=== PATIENT | male | born 1950 | race Caucasian/White ===

== ENCOUNTER 2021-09-13 11:21 | Day surgery (SDC) | payer MEDICARE ==
[~2021-09-13 11:21] MED LIST: ALBUTEROL NEB (CONC) 2.5 MG/0.5 ML INHALATION ONE; ATROPINE SULFATE 0.4 MG/ML 1 ML VIAL IM ONE; LACTATED RINGERS 1,000 ML IV SCH; LIDOCAINE 2% (PF) 20 MG/ML 5 ML VIAL INHALATION ONE; LIDOCAINE VISCOUS 300 MG/15 ML CUP MUCOUS MEM ONE
[2021-09-13 12:14] VITALS: BMI 27.8
[2021-09-13 12:20] VITALS: RESP 16; TEMP 97.2
[2021-09-13] MEDS ORDERED: LACTATED RINGERS 1,000 ML IV SCH (12:20)
[2021-09-13] MEDS ORDERED: LACTATED RINGERS 1,000 ML IV ONE (12:30)
[2021-09-13] MEDS ORDERED: MIDAZOLAM 2 MG/2 ML VIAL ONE (12:34)
[2021-09-13] MEDS ORDERED: PROPOFOL 10 MG/ML 20 ML VIAL IV ONE (12:34)
[2021-09-13] MEDS ORDERED: KETAMINE 10 MG/ML 20 ML VIAL ONE (12:34)
[2021-09-13] MEDS ORDERED: LIDOCAINE 2% INJ 20 MG/ML (2 ML VIAL) ONE (12:34)
[2021-09-13] MEDS ORDERED: LIDOCAINE 2% INJ 20 MG/ML INTRATRACH ONE (12:51)
[2021-09-13 13:24] VITALS: BP 109/74; PULSE 79
--- NOTE | 2021-09-13 20:52 | PCN ---
PROCEDURE NOTE PRE-PROCEDURE DIAGNOSIS: 1. Endobronchial obstruction. 2. Bronchus intermedius. POST PROCEDURE DIAGNOSIS: 1. Endobronchial obstruction. 2. Bronchus intermedius. PROCEDURE: Bronchoscopy, airway examination, therapeutic lavage, BAL, right middle lobe. OPERATORS: Dr. Teague and Dr. Phan. The patient's procedure took place in room #1. There was informed consent and universal timeout. ANESTHESIA PROVIDED: General anesthesia. PROCEDURE: After the patient was adequately sedated and being fully monitored, the bronchoscope was inserted through the right nostril. It passed through the right nasopharynx into the oropharynx. The hypopharynx was identified and topicalized. The hypopharyngeal structures including anterior commissure, true cords, false cords, arytenoids, piriform sinuses, right and left valleculae and epiglottis all appeared relatively normal. After topicalization, the bronchoscope was pushed through the glottic opening into the trachea. The trachea appeared normal. Tracheal ravindra was sharp. The right and left mainstem were topicalized. The right upper lobe and its 3 segments, right middle lobe and its 2 segments, right lower lobe and its 5 segments, the left upper lobe proper and its 2 segments, the lingula and its 2 segments, and the left lower lobe and its 4 segments all appear normal. We look closely at the bronchus intermedius. There was no obstruction or lesion. There were secretions noted throughout. They were somewhat purulent. There was no bleeding. The mucosa appeared relatively normal. Next, the bronchoscope was wedged into the right middle lobe. A formal BAL took place. 30 mL of fluid was recovered. The fluid will be sent for analysis including cytology and microbiology. There was no complication or problem. The bronchoscope was withdrawn and the patient will be recovered. MMODL / IJN: [id number] /
== END 2021-09-13 13:31 | disposition home or self-care (01) ==
LOC: ORWHC2ENDO 11:21
PROVIDERS: ATTEND Internal Medicine Critical Care Medicine
DX: J20.9 Acute bronchitis, unspecified (principal); I25.10 Atherosclerotic heart disease of native coronary artery without angina pectoris; I11.0 Hypertensive heart disease with heart failure; I50.9 Heart failure, unspecified; E78.5 Hyperlipidemia, unspecified; J44.9 Chronic obstructive pulmonary disease, unspecified; E03.9 Hypothyroidism, unspecified; F41.9 Anxiety disorder, unspecified; K21.9 Gastro-esophageal reflux disease without esophagitis; F25.9 Schizoaffective disorder, unspecified; Z79.82 Long term (current) use of aspirin; Z79.51 Long term (current) use of inhaled steroids; Z79.01 Long term (current) use of anticoagulants; Z79.899 Other long term (current) drug therapy; Z79.890 Hormone replacement therapy; Z28.311 Partially vaccinated for COVID-19; Z82.49 Family history of ischemic heart disease and other diseases of the circulatory system; Z82.3 Family history of stroke; F17.200 Nicotine dependence, unspecified, uncomplicated; Z87.01 Personal history of pneumonia (recurrent)
CPT/HCPCS: 88108; 88305; 87252; 87070; 87205; 87116; 87102; 87206; 31624; J2001 ×2; J2250; J0461; J2704; 87496; 87498; 87502; 87529; 87634; 87798; 89050

== ENCOUNTER → 2021-09-20 | Outpatient (CLI) | payer MEDICARE ==
--- NOTE | 2021-09-21 11:21 | PE ---
EXAMINATION TYPE: PET CT fusion skull to thigh DATE OF EXAM: 09/20/2021 CLINICAL INDICATION:Male, 70 years old with history of R91.8 Abnormal Lung rodríguez; TECHNIQUE: Following the intravenous administration of 12.56 mCi of F-18 FDG, whole body images are performed from the skull base to the midthigh. Images are reviewed on the computer in the coronal, axial, and sagittal planes. Reconstructed rotating images are created on independent workstation and reviewed on the computer. A non-contrast CT is performed in conjunction with the PET scan. Glucose level 101 mg/dL COMPARISON: CT None., PET/CT None., FINDINGS: Mediastinal SUV maximum is 2.1. Hepatic parenchyma SUV maximum is 3.2 . SKULL BASE AND NECK: No suspicious FDG activity. CHEST, MEDIASTINUM, AND HILAR REGION: No suspicious FDG activity. ABDOMEN AND PELVIS: No suspicious FDG activity. OSSEOUS STRUCTURES: No suspicious FDG activity. OTHER CT: Lenses are removed from the globes. Atherosclerosis at the carotid bifurcations. Coronary a rtery atherosclerosis with sternotomy wires. Moderate centrilobular emphysema changes with pulmonary fibrosis changes most pronounced in the lung bases. The heart is mildly enlarged for size. Infrarenal aortic aneurysm measuring up to 5.1 cm. 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 S pleen is enlarged size measuring up to 16.0 cm. IMPRESSION: 1. No suspicious FDG activity identified. No priors were available. If a prior is made available an addendum can be made to address providers area of concern. 2. 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 3. Moderate to severe COPD with superimposed pulmonary fibrotic changes.
== END | disposition home or self-care (01) ==
LOC: RADXRMAIN 13:54
PROVIDERS: ATTEND Internal Medicine Critical Care Medicine
DX: I71.9 Aortic aneurysm of unspecified site, without rupture (principal); I72.9 Aneurysm of unspecified site; J44.9 Chronic obstructive pulmonary disease, unspecified
CPT/HCPCS: 78815; A9552

== ENCOUNTER 2022-07-02 11:10 | Day surgery (SDC) | payer MEDICARE ==
[~2022-07-02 11:10] MED LIST changes: -ALBUTEROL NEB (CONC) 2.5 MG/0.5 ML INHALATION ONE; -LIDOCAINE 2% (PF) 20 MG/ML 5 ML VIAL INHALATION ONE; -LIDOCAINE VISCOUS 300 MG/15 ML CUP MUCOUS MEM ONE
[2022-07-02 11:52] VITALS: TEMP 97.2
[2022-07-02] MEDS ORDERED: PROPOFOL 10 MG/ML 20 ML VIAL IV ONE (12:00)
[2022-07-02] MEDS ORDERED: fentaNYL (PF) 50 MCG/ML 2 ML AMP ONE (12:00)
[2022-07-02] MEDS ORDERED: LIDOCAINE 2% INJ 20 MG/ML INTRATRACH ONE (12:15)
[2022-07-02 12:23] VITALS: RESP 18
[2022-07-02 12:47] VITALS: BP 128/77; PULSE 66
--- NOTE | 2022-07-02 13:53 | OP ---
OPERATIVE REPORT DATE OF SERVICE : PROCEDURES PERFORMED: Bronchoscopy, airway examination, therapeutic lavage and bronchoalveolar lavage. PREOPERATIVE DIAGNOSIS: Right lower lobe pneumonia. POSTOPERATIVE DIAGNOSIS: Right lower lobe pneumonia. CO-SURGEON: Dr. Rodriguez. The patient's procedure took place in room #1 [facility]. DESCRIPTION OF PROCEDURE: Anesthesia provided general anesthesia. There was informed consent and universal timeout. After the patient was adequately sedated and being fully monitored, the bronchoscope was inserted through the right nostril. It passed through the right nasopharynx into the oropharynx. The hypopharynx was then identified. The hypopharyngeal structures, including the anterior commissure, true cords, false cords, arytenoids, piriform sinuses, right and left, vallecula, and epiglottis, all appeared normal. The glottic opening was topicalized. The bronchoscope was pushed through the glottic opening into the trachea. The trachea appeared normal. Tracheal ravindra was sharp. The right and left mainstem were topicalized. Next, we did a thorough evaluation of the left and right lung. The left upper lobe and its 2 segments, the lingula and its 2 segments and the left lower lobe and its 4 segments all had similar findings. There was just mild bronchitis throughout. There was some mild secretions noted. No dominant mass or tumor. There was no bleeding. Next, the right side was evaluated. The right upper lobe and its 3 segments, right middle lobe and its 2 segments the right lower lobe and its 5 segments all had similar findings of moderate bronchitis, there were purulent secretions noted in the right lower lobe. They were suctioned. There was no dominant mass or tumor. There was no bleeding. The bronchoscope was wedged into the right lower lobe. A formal BAL took place. 30+ mL of fluid was recovered. It was somewhat cloudy. It will be sent to the laboratory for analysis including cytology and microbiology. No additional recommendations are made. The patient tolerated the procedure well. The bronchoscope was withdrawn. The patient will be recovered and discharged home. MMODL / IJN: [id number] /
[2022-07-03 04:07] LABS: Appearance,BF Hazy
== END 2022-07-02 13:04 | disposition home or self-care (01) ==
LOC: ORWHC2ENDO 11:10
PROVIDERS: ATTEND Internal Medicine Critical Care Medicine
DX: J98.4 Other disorders of lung (principal); J44.9 Chronic obstructive pulmonary disease, unspecified; Z99.81 Dependence on supplemental oxygen; F17.210 Nicotine dependence, cigarettes, uncomplicated; I11.0 Hypertensive heart disease with heart failure; I50.9 Heart failure, unspecified; I25.10 Atherosclerotic heart disease of native coronary artery without angina pectoris; E78.5 Hyperlipidemia, unspecified; E03.9 Hypothyroidism, unspecified; I71.9 Aortic aneurysm of unspecified site, without rupture; F41.9 Anxiety disorder, unspecified; F32.A Depression, unspecified; F20.9 Schizophrenia, unspecified; Z79.02 Long term (current) use of antithrombotics/antiplatelets; Z79.1 Long term (current) use of non-steroidal anti-inflammatories (NSAID); Z79.51 Long term (current) use of inhaled steroids; Z79.890 Hormone replacement therapy; Z79.899 Other long term (current) drug therapy; Z79.82 Long term (current) use of aspirin
CPT/HCPCS: 88108; 88305; 89050; 87252; 87070; 87205; 87116; 87102; 87206; 31624; J2001; J0461; J3010; J2704